=== PATIENT | male | born 1935 | race Caucasian/White ===

== ENCOUNTER 2016-04-18 10:00 | Outpatient (CLI) | payer MEDICARE, OTHER ==
[2016-04-18 10:16] LABS: BASOPHILS % 0.5 (0.0-1.5); EOSINOPHILS % 4.9 % (0.0-6.8); LYMPHOCYTES # 2.1 # k/uL (0.6-4.0); MEAN CORPUSCULAR HEMOGLOBIN 27.5 pg (28.0-34.0); MONOCYTES # 0.6 # k/uL (0.0-0.9); MONOCYTES % 7.8 % (0.0-11.0); NEUTROPHILS # 4.4 # k/uL (1.4-7.7)
[2016-04-18 10:45] LABS: eGFR (African) 58; eGFR (Non-African) 48
== END 2016-04-18 10:02 ==
LOC: LAB 10:00
PROVIDERS: ATTEND Family Medicine
DX: I10 Essential (primary) hypertension (principal)
CPT/HCPCS: 36415; 80053; 80061; 85025

== ENCOUNTER 2016-05-30 08:16 | Day surgery (SDC) | payer MEDICARE, OTHER ==
[~2016-05-30 08:16] MED LIST: LACTATED RINGERS 1,000 ML IV.SOLN IV ONE; LIDOCAINE HCL/PF 2% 100 MG/5 ML VIAL IJ ONE; PROPOFOL 200 MG/20 ML VIAL IV ONE; SALINE FLUSH 10 ML DISP.SYRIN IVF ONE
--- NOTE | 2016-06-02 10:08 | GI Report ---
REFERRING PHYSICIAN: Dr. Rudolph Henley ETL DATA ARCHITECT: Miller Zapata MD PROCEDURE MEDICATION: Propofol as per anesthesia. INDICATIONS: This 80-year-old man has had polyps in the past. He also has metabolic syndrome with hypertension, hyperlipidemia, and has central obesity. His dad did have diabetes and a family history of hypertension. Patient came in and we tried him earlier this morning but the prep was terrible. He still had solid stool and a lot of diverticula, so we prepped him all day here at the hospital and did him again as the last case of the day. PROCEDURE PERFORMED: Colonoscopy and polypectomy. PROCEDURE: An Olympus video colonoscope was advanced to the rectum. The sigmoid has got significant diverticular disease. With large fecal loops throughout the sigmoid colon and we used a lot of lavage, this time we were able to maneuver amongst the stool to the descending colon and transverse colon to the cecum. A very atonic redundant colon above there but not much diverticula above the sigmoid. We lavaged the cecum and I do not see obvious intraluminal lesions noted. In the ascending colon, there is a 3 to 4 mm flat polyp removed with a cold snare and submitted to pathology. Transverse colon with no obvious intraluminal lesions noted, though with the poor prep, other small polyps could be missed. Descending colon, again, poor prep and a lot of diverticula in the descending colon and particularly in the sigmoid colon with still a large amount of stool. No obvious intraluminal lesions noted, though it was difficult with the prep. Retroflexion of the rectum was normal. FINDINGS: 1. Very poor prep. 2. A polyp removed from the right colon again. 3. Severe diverticular disease of the sigmoid and descending colon. 4. Metabolic syndrome with central obesity. RECOMMENDATIONS: 1. Next time, he needs to be on a 2-day prep. 2. Follow up colonoscopy in 5 years pending the pathology of the polyp. 3. With his metabolic syndrome and central obesity, losing 25 to 30 pounds of weight would be markedly beneficial with cutting out white or hyperglycemic carbohydrates. 4. Follow up with Dr. Henley. cc: Dr. Rudolph KAUFMAN
== END 2016-05-30 08:17 ==
LOC: OPSURG 08:16
PROVIDERS: ATTEND Internal Medicine Gastroenterology
DX: Z86.010 Personal history of colon polyps (principal); I10 Essential (primary) hypertension; E78.5 Hyperlipidemia, unspecified; E66.9 Obesity, unspecified
CPT/HCPCS: J2001; J2704; J7120; 45385; S1016

== ENCOUNTER 2016-08-01 12:10 | Outpatient (CLI) | payer MEDICARE, OTHER ==
[2016-08-01 12:30] LABS: BASOPHILS % 0.8 (0.0-1.5); EOSINOPHILS % 4.2 % (0.0-6.8); MEAN CORPUSCULAR HEMOGLOBIN 27.6 pg (28.0-34.0); MEAN CORPUSCULAR VOLUME 85.2 fl (80.0-100.0); MONOCYTES % 6.7 % (0.0-11.0); NEUTROPHILS # 5.7 # k/uL (1.4-7.7)
[2016-08-01 12:50] LABS: eGFR (African) > 60; eGFR (Non-African) 52
== END 2016-08-01 12:11 ==
LOC: LAB 12:10
PROVIDERS: ATTEND Family Medicine
DX: Z12.5 Encounter for screening for malignant neoplasm of prostate (principal); K92.2 Gastrointestinal hemorrhage, unspecified
CPT/HCPCS: 36415; 80048; 84153; 85025

== ENCOUNTER 2017-01-13 10:43 | Outpatient (CLI) | payer MEDICARE, OTHER ==
[2017-01-13 11:03] LABS: EOSINOPHILS % 4.5 % (0.0-6.8); MEAN CORPUSCULAR HEMOGLOBIN 25.4 pg (28.0-34.0); MEAN CORPUSCULAR VOLUME 82.4 fl (80.0-100.0); MONOCYTES % 7.7 % (0.0-11.0); NEUTROPHILS # 4.6 # k/uL (1.4-7.7)
[2017-01-13 20:49] LABS: SERUM IRON 68 ug/dL (59-158)
== END 2017-01-13 12:20 ==
LOC: LAB 10:43
PROVIDERS: ATTEND Internal Medicine Gastroenterology
DX: K22.70 Barrett's esophagus without dysplasia (principal); K21.9 Gastro-esophageal reflux disease without esophagitis; Q27.39 Arteriovenous malformation, other site; D12.6 Benign neoplasm of colon, unspecified; K57.90 Diverticulosis of intestine, part unspecified, without perforation or abscess without bleeding
CPT/HCPCS: 36415; 83540; 83550; 85025

== ENCOUNTER 2017-03-15 16:19 | Outpatient (CLI) | payer MEDICARE, OTHER ==
[2017-03-15 16:47] LABS: BASOPHILS % 0.7 (0.0-1.5); EOSINOPHILS % 3.4 % (0.0-6.8); MEAN CORPUSCULAR HEMOGLOBIN 27.1 pg (28.0-34.0); MEAN CORPUSCULAR VOLUME 87.8 fl (80.0-100.0); MONOCYTES % 7.1 % (0.0-11.0); NEUTROPHILS # 5.4 # k/uL (1.4-7.7)
[2017-03-15 17:17] LABS: eGFR (African) 47; eGFR (Non-African) 39
--- NOTE | 2017-03-15 18:15 | Diagnostic Imaging Report ---
DORA HONEYCUTT~ [facility] [address] [address] ~ ~ ~ ~ Report Submission Date: Mar 15, 2017 5:05:28 PM TRUCKING SUPERVISOR Patient ~ Study Name: HELEN AGARWAL ~ Date: Mar 15, 2017 4:46:03 PM TRUCKING SUPERVISOR ~ Modality Type: CR Gender: M ~ Description: CHEST : 39 ~ Institution: [facility] Physician: DORA HONEYCUTT ~ ~ ~ Examination: PA and lateral chest. History: Evaluate lung bartlett. Comparison exam: None provided Findings: PA lateral chest demonstrate a prominent cardiac and mediastinal silhouette. Vascular calcifications involving the aortic arch. Diffuse parenchymal prominence with blunting of the costophrenic margins and posterior sulci. Osseous structures are appropriate for age. Impression: Prominent interstitium - infiltrate versus increased volume status. Basilar effusions. ~ Electronically signed on Mar 15, 2017 5:05:28 PM TRUCKING SUPERVISOR by: Anival KAUFMAN
== END 2017-03-15 16:20 ==
LOC: RT 16:19
PROVIDERS: ATTEND Family Medicine
DX: R06.09 Other forms of dyspnea (principal); I10 Essential (primary) hypertension
CPT/HCPCS: 36415; 71020; 80053; 85025

== ENCOUNTER 2017-04-14 11:38 | Outpatient (CLI) | payer MEDICARE, OTHER ==
[2017-04-14 12:01] LABS: BASOPHILS % 0.6 (0.0-1.5); EOSINOPHILS % 2.8 % (0.0-6.8); MEAN CORPUSCULAR VOLUME 89.7 fl (80.0-100.0); MONOCYTES % 6.2 % (0.0-11.0); NEUTROPHILS # 4.8 # k/uL (1.4-7.7)
--- NOTE | 2017-04-14 12:51 | Diagnostic Imaging Report ---
DORA HONEYCUTT [facility] [address] [facility] [address] [address] Report Submission Date: Apr 14, 2017 12:21:41 PM ETHNOLOGY TEACHER Patient Study Name: HELEN AGARWAL Date: Apr 14, 2017 11:55:46 AM ETHNOLOGY TEACHER Modality Type: CR Gender: M Description: CHEST : 39 Institution: [facility] Physician: DORA HONEYCUTT Examination: PA and lateral chest. History: DYSPNEA ON EXERTION (Hx) / DYSPNEA ON EXERTION (DICOM Hx) / DYSPNEA ON EXERTION (Pt comments) Comparison exam: 15 March 2017. Findings: PA lateral chest demonstrate a prominent cardiac and mediastinal silhouette. Increased basilar interstitial fullness and blunting of the costophrenic margins and posterior sulci. Osseous structures are appropriate for age. Impression: Increased basilar infiltrates and effusions suggesting increased volume status/congestive failure. Correlate with patient symptoms. Electronically signed on Apr 14, 2017 12:21:41 PM ETHNOLOGY TEACHER by: Anival KAUFMAN
[2017-04-14 12:56] LABS: eGFR (African) 37; eGFR (Non-African) 31
== END 2017-04-14 11:40 ==
LOC: LAB 11:38
PROVIDERS: ATTEND Family Medicine
DX: I10 Essential (primary) hypertension (principal); R06.09 Other forms of dyspnea; R07.9 Chest pain, unspecified
CPT/HCPCS: 36415; 71046; 80053; 83880; 84484; 85025

== ENCOUNTER 2017-06-09 15:08 | Outpatient (CLI) | payer MEDICARE, OTHER | END 2017-06-09 15:10 | LOC: LAB 15:08 | PROVIDERS: ATTEND Family Medicine | DX: E03.9 Hypothyroidism, unspecified (principal) | CPT/HCPCS: 36415; 84443 ==

== ENCOUNTER 2017-07-11 14:17 | Outpatient (CLI) | payer MEDICARE, OTHER ==
[2017-07-11 17:11] LABS: eGFR (African) 32; eGFR (Non-African) 27
== END 2017-07-11 14:20 ==
LOC: LAB 14:17
PROVIDERS: ATTEND Internal Medicine Cardiovascular Disease
DX: I25.10 Atherosclerotic heart disease of native coronary artery without angina pectoris (principal); I50.42 Chronic combined systolic (congestive) and diastolic (congestive) heart failure; I10 Essential (primary) hypertension
CPT/HCPCS: 36415; 80053; 84443; 85027

== ENCOUNTER 2017-10-18 11:17 | Outpatient (CLI) | payer MEDICARE, OTHER ==
[2017-10-18 12:59] LABS: eGFR (African) 35; eGFR (Non-African) 29
== END 2017-10-18 11:19 ==
LOC: LAB 11:17
PROVIDERS: ATTEND Family Medicine
DX: E03.9 Hypothyroidism, unspecified (principal); M10.9 Gout, unspecified; I10 Essential (primary) hypertension; N18.9 Chronic kidney disease, unspecified; R73.9 Hyperglycemia, unspecified
CPT/HCPCS: 36415; 80053; 83036; 84443; 84550

== ENCOUNTER 2018-02-07 17:32 | Outpatient (CLI) | payer MEDICARE, OTHER | END 2018-02-07 17:33 | LOC: LABRHC 17:32 | PROVIDERS: ATTEND Family Medicine | DX: E03.9 Hypothyroidism, unspecified (principal) | CPT/HCPCS: 84443 ==

== ENCOUNTER 2018-04-26 14:28 | Outpatient (CLI) | payer MEDICARE, OTHER ==
[2018-04-26 14:50] LABS: BASOPHILS % 0.3 (0.0-1.5); EOSINOPHILS % 4.6 % (0.0-6.8); MEAN CORPUSCULAR HEMOGLOBIN 26.3 pg (28.0-34.0); MONOCYTES % 7.2 % (0.0-11.0)
[2018-04-26 15:03] LABS: eGFR (Non-African) 24
--- NOTE | 2018-04-27 02:08 | Diagnostic Imaging Report ---
JENELLE BENSON [facility] [address] [facility] [address] Report Submission Date: Apr 26, 2018 4:30:10 PM GEOCHEMIST Patient Study Name: HELEN AGARWAL Date: Apr 26, 2018 2:43:58 PM GEOCHEMIST Modality Type: DX Gender: M Description: CHEST 2VIEW : 39 Institution: [facility] Physician: JENELLE BENSON Examination: PA and lateral chest. History: Evaluate lung bartlett. PT STATES CHF FOR OVER A YEAR AND RECENT INCREASED SOA Comparison exam: None provided. Findings: PA and lateral views of the chest demonstrates a normal cardiac and mediastinal silhouette. Tortuous aorta with thus calcifications. Interstitial prominence. Blunting of the lung bases bilaterally. Left-sided cardiac pacemaker. Osseous structures are appropriate for age. Impression: Bibasilar infiltrates/effusions associated with interstitial prominence suggesting increased volume status. Electronically signed on Apr 26, 2018 4:30:10 PM GEOCHEMIST by: Anival KAUFMAN
== END 2018-04-26 14:30 ==
LOC: LAB 14:28
PROVIDERS: ATTEND Family Medicine
DX: I50.9 Heart failure, unspecified (principal); E03.9 Hypothyroidism, unspecified
CPT/HCPCS: 36415; 71046; 80053; 83880; 84436; 84479; 85025

== ENCOUNTER 2018-04-30 12:06 | Outpatient (CLI) | payer MEDICARE, OTHER ==
[2018-04-30 12:43] LABS: eGFR (Non-African) 23
== END 2018-04-30 12:08 ==
LOC: LAB 12:06
PROVIDERS: ATTEND Internal Medicine Cardiovascular Disease
DX: I25.10 Atherosclerotic heart disease of native coronary artery without angina pectoris (principal); I50.42 Chronic combined systolic (congestive) and diastolic (congestive) heart failure
CPT/HCPCS: 36415; 80048